=== PATIENT | male | born 1945 | race Caucasian/White ===

== ENCOUNTER 2023-02-17 09:43 | Emergency (ER) | payer OTHER, SELFPAY ==
[2023-02-17] VITALS (60 sets, daily range): BP systolic 121–167; BP diastolic 68–87; PULSE 59–85; RESP 12–22; TEMP 36.7; O2SAT 96–100
--- NOTE | 2023-02-17 10:15 | RT.EKG_ITS ---
APPROVED REPORT Exam: Resting ECG Reason for Exam: shortness of breath Patient Location: E HR:62 bpm ECG Measurements Heart Rate 62 AXIS [place] 138 P 69 QRSd 90 QRS 64 QT 426 T 32 QTc 439 Conclusion Sinus rhythm...normal P axis, V-rate 60- 99 Multiple ventricular premature complexes...V complexes w/ short R-R intervls Probable left atrial enlargement...P >50mS, <-0.10mV V1 Consider anterior infarct...Q >30mS in V2-V5 Physician: no stemi, minimal inferior and anterior elevation however all are less than 1mm and unchan ged compared to prior ekg from 06/28/16
--- NOTE | 2023-02-17 10:56 | ED.GENADUL_ITS ---
Discharge Plan Disposition Patient Disposition: Transfer-Acute Inpatient Care Specific Acute Inpt Facility: [facility] Condition: Stable Discharge Details Clinical Impression: Angina of effort Primary Care Provider: Racquel Kinney ED Provider: Kalyn Ruiz Home Meds and New Rx's Prescriptions: Continued omeprazole 20 MG capsule,delayed release(DR/EC) 20 mg PO DAILY@0600 atorvastatin [Lipitor] 40 MG tablet 40 mg PO QPM metoprolol tartrate 25 MG tablet 1 tab PO DAILY aspirin 325 MG tablet,delayed release (DR/EC) 325 mg PO DAILY Qty: 30 0RF tamsulosin 0.4 MG capsule 0.4 mg PO DAILY Qty: 0 0RF lisinopril 20 mg Tablet 20 mg DAILY Discharge Instructions Instructions: Chest Pain (ED) Discharge Data Discharge Date/Time-TO BE ENTERED AT DEPARTURE: 02/17/23 17:49 Medical Decision Making <HUNTER Harrington - Last Filed: 02/18/23 20:04> This 77-year-old gentleman presents with chest pressure and shortness of breath with exertion. History of CABG in 2014 Denies any chest pressure throughout this encounter, denies any shortness of breath currently Initial troponins x2 negative, EKG without any acute change from patient's prior assessments, please see my attendings documentation Chest x-ray without acute abnormality Case discussed with hospitalist and initially agreeable to admission, however nurse enrique Corley is attempting to transfer the patient to [facility] for cardiac catheterization, please see her documentation for Patient took his 325 of aspirin this morning, did not repeat Low suspicion for pulmonary embolism clinically, no hypoxia or tachypnea Suspect stable angina at time of my assessment <Meka Cote NP - Last Filed: 02/17/23 16:37> This 77-year-old gentleman presents with chest pressure and shortness of breath with exertion. History of CABG in 2014 Denies any chest pressure throughout this encounter, denies any shortness of breath currently Initial troponins x2 negative, EKG without any acute change from patient's prior assessments, please see my attendings documentation Chest x-ray without acute abnormality Case discussed with hospitalist and initially agreeable to admission, however nurse enrique Corley is attempting to transfer the patient to [facility] for cardiac catheterization, please see her documentation for Patient took his 325 of aspirin this morning, did not repeat Low suspicion for pulmonary embolism clinically, no hypoxia or tachypnea Suspect stable angina at time of my assessment I was called to admit Mr. Borja for further cardiology evaluation. In brief he has history of coronary artery disease s/p CABG in 2015 and has been well and symptomatic until 3 days ago when he developed exertional chest pressure and shortness of breath that occurs with activity. His symptoms resolve with rest after about 10 minutes. He denies cough, fever, swelling or other symptoms. He has not had any symptoms at rest, he has not had these symptoms since his cabg. He has been taking full dose asa, atorvastatin 40 mg, metoprolol in addition to lisinopril, omeprazole and tamsulosin. He reports these symptoms are consistent with symptoms he was having in 2015 prior to his cabg. His work up in the ED shows no acute EKG changes and 2 negative troponins. He is hemodynamically stable with no symptoms at rest. physical exam shows white male of stated age, no acute distress. head atraumatic, neck supple with no JVD, cardiovascular RRR, sinus rhythm, faint murmur heard best over left sternal border. abd soft non tender, skin no rashes, ext with no edema. symptoms concerning for accelerating angina so cardi[place] [facility] [place] the transfer center and case reviewed. He has been accepted by DR Zimmer for further cardiology evaluation. He is being transported by EMS by ground crew. transfer discussed with DR Odom. Medical Records Medical records reviewed: Yes I reviewed the patient's medical records. HPI <HUNTER Harrington - Last Filed: 02/18/23 20:04> General Date/Time Provider Initiated Documentation: 02/17/23 10:17 . HPI Narrative: This 77-year-old gentleman with history of CABG, hypertension, and hyperlipidemia has been having increasing shortness of breath and chest pressure over the past several days. He states is atypical for him. He is fairly active. Denies with his CABG he had shortness of breath as well per patient. This is in 2014. He states has not had a stress test since that time per patient. He denies any calf pain or swelling, recent flights, surgeries and long drives. He states is been going on for approximately 3 days. Related Data Home Medications Medication Instructions Recorded Confirmed omeprazole 20 mg capsule,delayed 20 mg PO DAILY@0600 09/18/13 02/17/23 release atorvastatin 40 mg tablet (Lipitor) 40 mg PO QPM 06/28/16 02/17/23 metoprolol tartrate 25 mg tablet 1 tab PO DAILY 06/28/16 06/28/16 aspirin 325 mg tablet,delayed 325 mg PO DAILY ##30 06/29/16 02/17/23 release tamsulosin 0.4 mg capsule 0.4 mg PO DAILY ##0 06/29/16 02/17/23 lisinopril 20 mg tablet 20 mg DAILY 02/17/23 02/17/23 Previous Rx's Medication Instructions Recorded aspirin 325 mg tablet,delayed 325 mg PO DAILY ##30 06/29/16 release tamsulosin 0.4 mg capsule 0.4 mg PO DAILY ##0 06/29/16 Allergies Allergy/AdvReac Type Severity Reaction Status Date / Time codeine Allergy rapid Unverified 09/18/13 12:22 heart rate/sweating General Stated Complaint: SOB TON: 3 PFSH <HUNTER Harrington - Last Filed: 02/18/23 20:04> All Active Problems (Updated 02/17/23 @ 16:23 by Meka Cote NP) Angina of effort (Acute) Social History Smoking/Tobacco Use Status: Former Tobacco Use Smoking risk assessment performed?: Yes Alcohol Intake: never Drug use: Never Do you feel safe at home: Yes Do you feel safe in your relationship?: Yes Exam <HUNTER Harrington Last Filed: 02/18/23 20:04> Narrative Exam Narrative: Calm and cooperative gentleman, no acute distress, pupils equal round reactive to light and accommodation, lungs clear to auscultation bilaterally, cardiac rate and rhythm regular, no chest wall tenderness, no abdominal tenderness, no pallor, fully alert and oriented, distal pulses intact, no peripheral edema or calf swelling or tenderness, neurovascularly intact Course <HUNTER Harrington Last Filed: 02/18/23 20:04> Vital Signs Vital signs: Vital Signs Temperature 36.7 C 02/17/23 10:12 Pulse 71 02/17/23 10:12 Respiratory Rate 18 02/17/23 10:12 Blood Pressure 142/69 H 02/17/23 10:12 Pulse Oximetry 98 02/17/23 10:12 Temperature 36.7 C 02/17/23 10:12 Pulse 71 02/17/23 10:12 Respiratory Rate 18 02/17/23 10:12 Respiratory Effort Normal, Non-Labored 02/17/23 10:17 Blood Pressure 142/69 H 02/17/23 10:12 Blood Pressure Position Supine 02/17/23 10:12 Pulse Oximetry 98 02/17/23 10:12 Oxygen Delivery Method Room Air 02/17/23 10:12 Oxygen Flow Rate 0 02/17/23 10:12 Pain Level 0 02/17/23 10:12
[2023-02-17 11:06] LABS: Abs Immature Grans 0.02 10^3/uL (0.0-0.06); Absolute Basophil Count 0.06 10^3/uL (0.0-0.2); Absolute Eosinophil Count 0.18 10^3/uL (0.0-0.7); Absolute Lymphocyte Count 1.81 10^3/uL (1.2-3.4); Absolute Monocyte Count 0.55 10^3/uL (0.1-0.8); Absolute Neutrophil Count 4.31 10^3/uL (1.2-6.7); Basophils % 0.9; Eosinophils % 2.6; HCT 40.7 % (40.0-50.0); HGB 13.9 g/dL (13.5-17.5); Immature Grans % 0.3; Lymphocytes % 26.1; MCH 32.5 pg (27.0-33.0); MCHC 34.2 % (32.0-36.0); MCV 95 fL (80-95); MPV 9.7 fL (8.0-11.0); Monocytes % 7.9; Neutrophils % 62.2; Platelet Count 218 10^3/uL (130-400); RBC 4.28 10^6/uL (4.36-5.78); RDW 12.1 % (11.8-14.1); RDW-SD 42.4 fL; WBC 6.93 10^3/uL (4.4-10.8)
[2023-02-17 11:26] LABS: ALT 36 U/L (16-63); AST 25 U/L (15-37); Albumin 3.6 g/dL (3.4-5.0); Alkaline Phosphatase 70 U/L (46-116); Anion Gap 5.9 mmol/L (3-11); BUN 17 mg/dL (7-18); Bilirubin, Total 0.6 mg/dL (0.2-1.0); CO2 29.1 mmol/L (21.0-32.0); CREATININE 1.3 mg/dL (0.70-1.30); Calcium 8.7 mg/dL (8.5-10.1); Chloride 103 mmol/L (98-107); Estimated GFR 56.58 (mL/min/1.73m2); Glucose 96 mg/dL (74-106); NT-proBNP 190 pg/mL (<300); Potassium 4.4 mmol/L (3.5-5.1); Sodium 138 mmol/L (136-145); Total Protein 6.9 g/dL (6.4-8.2); Troponin I < 50 ng/L (<or=60)
--- NOTE | 2023-02-17 12:45 | DI.RAD_ITS ---
Exam(s) XR CHEST 2V PA LATERAL EXAM: XR CHEST 2V PA LATERAL CLINICAL HISTORY: shortness of breath. TECHNIQUE: 2D digital imaging was performed. COMPARISON: CR CHEST 2 VIEWS PA,LAT from 09/18/2013 CR CHEST 2 VIEWS PA,LAT from 06/28/2016 FINDINGS: 2 views: There is left anterior chest wall cardiac loop detector now evident. Sternotomy wires again noted as well as evidence of previous CABG. Heart size remains normal and the mediastinum is not widened No new infiltrates nor pleural effusions. No pulmonary edema. There is a small nodular density in the lower right lung field which is unchanged from 2012 and 2015 and is probably a small calcified granuloma or possibly related to the breast nipple shadow. There a re no new ominous lung nodules. IMPRESSION: No acute pulmonary findings. Sternotomy wires. CABG. No cardiomegaly. No pulmonary edema. No pleural effusions. DATA REPOSITORY: RADIATION DOSE DELIVERED:
[2023-02-17 13:17] LABS: Troponin I < 50 ng/L (<or=60)
--- NOTE | 2023-02-17 14:16 | W.PM.HP.N ---
Date of service: 02/17/23 Time of Service: 14:16 History of Present Illness History of Present Illness Chief Complaint: shortness of breath Narrative: 77 year old male with history of CABG in usual state of health who developed exertional shortness and of breath and chest pain 3 days ago. work up in the ED unrevealing. his symptoms concerning for unstable angina. plan to admit to hospitalist for stress testing. PFSH Social History Smoking/Tobacco Use Status: Former Tobacco Use Smoking risk assessment performed?: Yes Alcohol Intake: never Drug use: Never Do you feel safe at home: Yes Do you feel safe in your relationship?: Yes Meds Allergies and Home Medications Allergies Allergy/AdvReac Type Severity Reaction Status Date / Time codeine Allergy rapid Unverified 09/18/13 12:22 heart rate/sweating Home Medications Medication Instructions Recorded Confirmed Type omeprazole 20 mg capsule,delayed 20 mg PO DAILY@0600 09/18/13 02/17/23 History release atorvastatin 40 mg tablet (Lipitor) 40 mg PO QPM 06/28/16 02/17/23 History metoprolol tartrate 25 mg tablet 1 tab PO DAILY 06/28/16 06/28/16 History aspirin 325 mg tablet,delayed 325 mg PO DAILY ##30 06/29/16 02/17/23 Rx release tamsulosin 0.4 mg capsule 0.4 mg PO DAILY ##0 06/29/16 02/17/23 Rx lisinopril 20 mg tablet 20 mg DAILY 02/17/23 02/17/23 History Results Labs 02/17/23 11:00 02/17/23 11:00 Labs: Laboratory Results - last 24 hr 02/17/23 02/17/23 02/17/23 11:00 11:00 11:00 WBC 6.93 RBC 4.28 L Hgb 13.9 Hct 40.7 MCV 95 MCH 32.5 MCHC 34.2 RDW 12.1 Plt Count 218 MPV 9.7 Immature Gran % 0.3 Neutrophils % 62.2 Lymphocytes % 26.1 Monocytes % 7.9 Eosinophils % 2.6 Basophils % 0.9 Nucleated RBC % 0.0 Absolute Neutrophils 4.31 Absolute Lymphocytes 1.81 Absolute Monocytes 0.55 Absolute Eosinophils 0.18 Absolute Basophils 0.06 Sodium 138 Potassium 4.4 Chloride 103 Carbon Dioxide 29.1 Anion Gap 5.9 BUN 17 Creatinine 1.3 Est GFR (CKD-EPI 2020) 56.58 Glucose 96 Calcium 8.7 Total Bilirubin 0.6 AST 25 ALT 36 Alkaline Phosphatase 70 Troponin I < 50 NT-Pro-B Natriuret Pep 190 Cancelled Total Protein 6.9 Albumin 3.6 02/17/23 12:50 WBC RBC Hgb Hct MCV MCH MCHC RDW Plt Count MPV Immature Gran % Neutrophils % Lymphocytes % Monocytes % Eosinophils % Basophils % Nucleated RBC % Absolute Neutrophils Absolute Lymphocytes Absolute Monocytes Absolute Eosinophils Absolute Basophils Sodium Potassium Chloride Carbon Dioxide Anion Gap BUN Creatinine Est GFR (CKD-EPI 2020) Glucose Calcium Total Bilirubin AST ALT Alkaline Phosphatase Troponin I < 50 NT-Pro-B Natriuret Pep Total Protein Albumin Last Vital Signs Temp 36.7 C 02/17/23 10:12 Pulse 66 02/17/23 12:31 Resp 15 02/17/23 12:53 BP 126/78 02/17/23 12:31 Pulse Ox 98 02/17/23 12:53
--- NOTE | 2023-02-17 17:48 | NUR.NOTE ---
Nursing Note: attempted to call and give report to [facility] Nurse, they could not accept the call at this time. Will attempt to call back later.
== END 2023-02-17 17:49 | disposition short-term general hospital (02) ==
PROVIDERS: Emergency Provider Physician Assistant
DX: I20.8 Other forms of angina pectoris (principal); R06.02 Shortness of breath; Z95.1 Presence of aortocoronary bypass graft; Z79.82 Long term (current) use of aspirin; I10 Essential (primary) hypertension; E78.5 Hyperlipidemia, unspecified; Z87.891 Personal history of nicotine dependence
CPT/HCPCS: 36415; 80053; 93005; 99283; 99285; 71046; 83880; 84484; 85025; 93010; 99284

== ENCOUNTER 2023-06-11 07:02 | Day surgery (SDC) | payer OTHER, SELFPAY ==
--- NOTE | 2023-06-10 15:43 | W.PM.DSUDISC ---
Date of service: 06/11/23 Time of Service: 10:05 Discharge Plan Disposition Patient Disposition: Home Condition: Good Discharge Details Reason For Visit: EGD and colonoscopy Attending Provider: Marcos Millard Primary Care Provider: Jhonny Schroeder Home Meds and New Rx's Prescriptions: New sucralfate 1 gram tablet 1 g PO QACHS Qty: 120 0RF Continued aspirin 81 mg tablet,delayed release (DR/EC) 81 mg PO DAILY omeprazole 20 MG capsule,delayed release(DR/EC) 20 mg PO DAILY@0600 atorvastatin [Lipitor] 40 MG tablet 40 mg PO QPM tamsulosin 0.4 MG capsule 0.4 mg PO DAILY Qty: 0 0RF lisinopril 20 mg Tablet 20 mg DAILY Discharge Instructions Instructions: Peptic Ulcer (DC), Diet for Stomach Ulcers and Gastritis (GEN) Additional Instructions: Denys, we were able to complete your endoscopies today without any difficulty. Although they do not see clinical features of Short's esophagus (changes around your gastroesophageal junction) you do have peptic ulcer disease, with 4 gastric ulcers in the bottom portion of your stomach. 1 of these ulcers have some stigmata or signs of recent bleeding. I do think you should go back to taking your omeprazole every day. I am also going to add a Medication called sucralfate, which you will need to take with every meal, and at bedtime. You will need to have another upper endoscopy at 6 weeks to reassess the ulcers. In the meantime, I also perform biopsies of the stomach to see if there are any other sources that could be treated to help reduce the ulceration. With regard to your colonoscopy, I did find 1 single polyp. I removed it completely. I will also send that off to pathology to confirm what type of polyp it is I will be in touch when I have the results of the pathology reports, and we can make a plan together at that point. 1. If tolerated, consume a soft, low fiber diet for 1-2 days. 2[address] Do not drive, drink alcohol, operate machinery, make critical decisions, or do activities that require coordination or balance for 24 hours. 3. Because air was put into your colon during the procedure, expelling air from your rectum (passing gas or farting) is normal. 4. You may not have a bowel movement for 1-3 days because of the colonoscopy prep. This is normal. 5. You may experience a sore throat for 24 to 48 hours. You may use throat lozenges or gargle with warm salt water to relieve the discomfort. 6. Because air was put into your stomach during the procedure, you may experience some belching. 7. Go directly to the emergency room if you notice any of the following: Develop chills (warm to touch), or if you have a thermometer and your temperature is above 101 Difficulty breathing or difficultly swallowing Persistent vomiting Severe abdominal pain, other than gas cramps Severe chest pain Black, tarry stools Any bleeding ? exceeding one tablespoon 8. Call your physician if the site where your intravenous was started becomes red, swollen, painful, and warm to touch. 9. Your physician has reviewed your pre-procedure medications. Please continue to take those medications as previously ordered. You will be given specific information/education regarding any changes to your medications before leaving. Activity:: Activity as Tolerated Diet:: As Tolerated Discharge Orders Discharge Orders: Discharge Order (Routine); Ordered 06/10/23 Ordered By: Marcos Millard DS: Diagnosis Discharge Diagnosis (1) GERD (gastroesophageal reflux disease): Status: Chronic Asessment and Plan: I will follow-up on pathology results
--- NOTE | 2023-06-10 15:45 | ENDO_ITS ---
Date of service: 06/11/23 Time of Service: 09:35 Endoscopy Report DATE OF PROCEDURE: 06/11/23 PRE-OP DIAGNOSIS: GERD and screening colonoscopy POST-OP DIAGNOSIS: other (Peptic ulcer disease; colon polyp) PROCEDURE: EGD and colonoscopy SURGEON: Marcos Millard ANESTHESIA TYPE: General:No Airway ESTIMATED BLOOD LOSS: 10 PATHOLOGY: other (Antral ulcers, random biopsies of gastric antrum, gastric body and GE junction; colon polyp at 110 cm) COMPLICATIONS: None DISPOSITION: same day INDICATIONS: Denys is a 78-year-old male with a longstanding history of gastroesophageal reflux disease who needs screening endoscopy to rule out Short's esophagus, as well as screening colonoscopy as part of routine health maintenance PREP: Miralax/Dulcolax PROCEDURE START TIME: 09:07 PROCEDURE END TIME: 09:33 COLONOSCOPY RETRACTION TIME: 8 FINDINGS: Antral gastritis with peptic ulcer disease, and 4 discrete ulcers; colon polyp at 110 cm PROCEDURE DESCRIPTION: After the initiation of monitored anesthetic care, and with the assistance of a bite block, I advanced a standard gastroscope through the mouth past the hypopharynx and into the esophagus.? Under the direct vision of the scope, I advanced down the esophagus into the stomach.? Once I entered the stomach, I performed a brief inspection, followed by retroflexion towards the gastric cardia.? This appeared normal.? After that, I gently advanced the scope around the incisura angularis and examined the pylorus.? The antrum had some mild erythema, but more importantly, there were 4 discrete gastric ulcers. 3 were in close proximity to 1 another, one was slightly separate. All appeared to be simple, but 1 did have some eschar in the middle, that raise the possibility of stigmata of bleeding. I was able to advance the catheter beyond the antrum through the pylorus and into the duodenum which appeared totally normal. I then brought the camera back into the stomach proper. I performed biopsies of the gastric ulcers with cold forceps. There was minimal bleeding. In order to rule out Helicobacter pylori, I also performed random biopsies of the gastric antrum and gastric body. All biopsies were performed with cold radial gel forceps. Next, I performed retroflexion. The gastric cardia appeared totally normal. I gently desufflated the stomach and brought the camera back up to the GE junction, which was approximately 46 cm from the incisors. There was only minim al irregularity of the Z-line. I did perform some biopsies here, although clinically it does not appear consistent with Short's esophagus. I then reexamined the remainder of the esophagus as the camera was withdrawn. All of this was normal. Next, we moved Denys into the left lateral decubitus position. I performed an external anorectal exam.? Perineum and skin were normal, as was the anal verge.? There was no evidence of external hemorrhoids.? Next, I performed a digital rectal exam.? I did not appreciate any abnormal findings.? Next, I advanced a colonoscope into the rectal vault.? I performed retroflexion.? This appeared normal.? Using insufflation, I then advanced the colonoscope beyond the rectal folds and into the sigmoid colon before advancing towards the cecum.? The quality of the prep was excellent.? The scope was noted to be in the cecum by identification of the ileocecal valve and appendiceal orifice.? I then began withdrawing the colonoscope using repeated irrigation as necessary for full evaluation of the colonic mucosa. Around 110 cm from the anal verge I identified a 0.25 cm polyp. ?It appeared sessile in character. ?I was able to remove this with a cold forcep polypectomy. ?I examined the site, and there was minimal bleeding. ?Once this was completed, I continued to withdraw the scope and examine the remainder of the colonic mucosa.?Once the scope was withdrawn to the level of the rectum, great care was taken to examine portions of the rectal folds.? Finally, the scope was withdrawn and the patient was brought to the same-day surgery recovery unit as the anesthetic wore off. ?The findings and instructions were shared with the patient prior to discharge.
--- NOTE | 2023-06-10 18:03 | ANES.PREOP_ITS ---
General Info Date of Service Date Performed: 06/11/23 Height: 5 ft 11.5 in Weight: 83.915 kg Body Mass Index (BMI): 25.4 Surgical Procedure: Operation Date: 06/11/23 09:20 Proposed Procedure Side Surgeon p Colonoscopy/Gastroscopy Marcos Millard MD Meds Allergies and Home Medications Allergies Allergy/AdvReac Type Severity Reaction Status Date / Time vardenafil Allergy Unknown Verified 06/11/23 07:15 codeine Allergy rapid Unverified 06/11/23 07:15 heart rate/sweating Home Medication Medication Instructions Recorded omeprazole 20 mg capsule,delayed 20 mg PO DAILY@0600 09/18/13 release atorvastatin 40 mg tablet (Lipitor) 40 mg PO QPM 06/28/16 tamsulosin 0.4 mg capsule 0.4 mg PO DAILY ##0 06/29/16 lisinopril 20 mg tablet 20 mg DAILY 02/17/23 aspirin 81 mg tablet,delayed 81 mg PO DAILY 04/28/23 release Current Visit Medications: Current Medications Generic Name Dose Route Start Last Admin Trade Name Freq PRN Reason Stop Dose Admin Hyoscyamine Sulfate 0.125 mg 06/10/23 15:46 Hyoscyamine 0.125 Mg Sl/Oral/Chew SL 07/10/23 15:45 DIRECTED PRN Ringer's Solution 1,000 mls @ 80 mls/hr 06/11/23 06:00 IV 06/11/23 23:59 INF[facility]ION [facility] IV Miscellaneous Supplies 1 each 06/11/23 06:00 Iv Access IV 06/11/23 23:59 DIRECTED SHADIA Ondansetron HCl 4 mg 06/10/23 15:46 Ondansetron 4 Mg/2 Ml Vial IVP 07/10/23 15:45 Q4H PRN PRN Nausea / Vomiting Sodium Chloride 0 ml 06/11/23 06:00 Normal Saline Flush 10 Ml Syr IV 06/11/23 23:59 PRN PRN Sodium Chloride 0 ml 06/11/23 06:00 Normal Saline 10 Ml Vial IJ 06/11/23 23:59 DIRECTED PRN Sterile Water 0 ml 06/11/23 06:00 Water,Injection,Sterile 10 Ml Vial IJ 06/11/23 23:59 DIRECTED PRN PFSH Active Problems Active Problems: Problem Status Onset Code Erectile dysfunction N52.9 GERD (gastroesophageal reflux disease) K21.9 Medical History Medical History Actinic keratoses Altered bowel function Back pain Coronary artery disease Dyspnea on exertion Rectal bleeding TIA (transient ischemic attack) 2019 Tubular adenoma (~03/16/05) Vertebrobasilar insufficiency Surgical History Surgical History History of colonoscopy with polypectomy (~2018) 03/16/2005 History of coronary artery bypass graft 2014 Last saw cards 02/2023 At [facility] History of esophagogastroduodenoscopy (EGD) (~06/25/11) HPylori to repeat in 6 months per referral Tobacco Smoking/Tobacco Use Status: Former Tobacco Use Alcohol Alcohol Intake: never Substance Use Substance use: Never Substance use type: does not use Vital Signs and Lab Results Vital Signs Most Recent Vital Signs in EMR: Temp Pulse Resp BP Pulse Ox 36.1 C L 86 16 124/84 97 06/11/23 07:10 06/11/23 07:10 06/11/23 07:10 06/11/23 07:10 06/11/23 07:10 Lab Results Blood Type / Crossmatch: No Data to Display Complete Blood Count: No Data to Display Complete Metabolic Panel: No Data to Display Liver Function Panel: No Data to Display Coagulation Panel: No Data to Display Cardiac Panel: No Data to Display Arterial Blood Gas: No Data to Display Venous Blood Gas: No Data to Display Pancreas Panel: No Data to Display Thyroid Panel: No Data to Display Infectious Disease: No Data to Display Blood Cultures: No Data to Display Toxicology Panel: No Data to Display Imaging and Studies Imaging and Studies Study information below may be from another EMR and interpreted by another provider. Please see original notes in EMR for more complete details. EKG Summary: 02/28: sinus, PVCs, LAE. Echocardiogram Summary: 02/2023 stress echo: 7.7 METS, baseline hypokinesis of mid anterolateral to inferolateral wall, no evidence of stress induced ischemia. 02/2023: LVEF 52%, No sig valve issues. 06/23: LVEF 60-65%, mild MV prolapse with mild-mod regurg, moderate TR, PAS 25-35 mmhg. Carotid Artery Summary:: 06/23: no sig stenosis. Anesthesia Assessment and Plan Anesthesia History Personal History: No History of Anesthesia Complications Family History: Family History Unknown Exercise Tolerance Exercise Tolerance: Metabolic Equivalents>4 Cardiac & Pulmonary Exam Cardiac Exam: Normal S1/S2 Heart Sounds Pulmonary Exam: Clear Bilateral Breath Sounds Implantable Cardiac Device Does patient have a Pacemaker or an ICD?: No Airway Exam Known Difficult Airway: No Mallampati Class: 3 Mouth Opening: Normal (> 3cm) Thyromental Distance: Greater than 3 cm Neck Range of Motion: Limited ROM Neck Circumference: Normal Teeth Condition: Normal Dentition ASA Classification ASA Score: ASA 3 Emergency Case?: No NPO Status NPO Status: NPO Clears >2 hours, Solids >8 hours Anesthesia Plan Resuscitation Status: Full Code Anesthesia Technique: General Anesthesia Airway Planned: Natural Airway Monitors Used: Standard Monitors Preoperative Comments:: 78 yo male for egd/colo. Sig PMHx: GERD, CAD (3 v CABG 2015 in [place], stable angina), BOYD, TIA (2019), former smoker,
[2023-06-11 07:10] VITALS: BP 124/84; PULSE 86; RESP 16; TEMP 36.1; O2SAT 97
[2023-06-11] MEDS: Lactated Ringers 1,000 ML 80 ML IV (07:40)
[2023-06-11 07:57] VITALS: BMI 25.4
--- NOTE | 2023-06-11 09:10 | BOWEL_PTH ---
PATIENT: Denys Borja LOC: [facility] U#:[id number] AGE/SX: 78/M ROOM: RE06/11/[address]: Marcos Millard MD : 1945 BED: DIS: 06/11/2023 SPEC #: [id number] RECD: 06/11/23 12:42 STATUS: FORTUNATO RE #: [id number] DAVE: 06/11/23 09:[address]: Marcos Millard DEPT: Surgical Specimen RECD BY: Rowan Awad ENTERED: 06/11/23 12:47 SP TYPE: Bowel OTHR DR: Jhonny Schroeder Tissues: 1 - STOMACH BIOPSY 2 - STOMACH BIOPSY 3 - STOMACH BIOPSY 4 - ESOPHAGUS BIOPSY 5 - BIOPSY BOWEL Procedures: GROSS AND MICRO LEVEL 4 Comments: [id number]
[2023-06-11 09:45] VITALS: BP 109/85; PULSE 75; RESP 17; TEMP 36.2; O2SAT 98
--- NOTE | 2023-06-11 10:00 | W.ANESPOSTOP ---
Postoperative Evaluation Date, Time and Location Date Performed: 06/11/23 Time Performed: 10:00 Patient Location: Day Surgery Unit Vital Signs Most Recent Imported Vital Signs: Most Recent Vital Signs Temp Pulse Resp BP Pulse Ox 36.2 C L 75 17 109/85 98 06/11/23 09:45 06/11/23 09:45 06/11/23 09:45 06/11/23 09:45 06/11/23 09:45 Pain Score Most Recent Pain Score: Most Recent Pain Score Pain Level 0 06/11/23 09:45 Assessment Mental Status: Awake (Alert & Oriented to Patient Baseline) Airway and Respiratory Function: Patent airway with normal (patient baseline) respiratory exam Cardiovascular Function: Hemodynamically Stable Hydration Status: Adequately Hydrated Nausea & Vomiting: No Nausea or Vomiting Pain: Pt. Denies Any Pain Peripheral Nerve Block: Patient did not receive a nerve block
[2023-06-11 10:14] VITALS: BP 128/81; PULSE 66; RESP 17; TEMP 36.3; O2SAT 99
--- NOTE | 2023-06-11 10:17 | W.PM.DSUDISC ---
Discharge Plan Disposition Patient Disposition: Home Condition: Good Discharge Details Reason For Visit: EGD and colonoscopy Attending Provider: Marcos Millard Primary Care Provider: Jhonny Schroeder Home Meds and New Rx's Prescriptions: New sucralfate 1 gram tablet 1 g PO QACHS Qty: 120 1RF Continued aspirin 81 mg tablet,delayed release (DR/EC) 81 mg PO DAILY omeprazole 20 MG capsule,delayed release(DR/EC) 20 mg PO DAILY@0600 atorvastatin [Lipitor] 40 MG tablet 40 mg PO QPM tamsulosin 0.4 MG capsule 0.4 mg PO DAILY Qty: 0 0RF lisinopril 20 mg Tablet 20 mg DAILY Discharge Instructions Instructions: Peptic Ulcer (DC), Diet for Stomach Ulcers and Gastritis (GEN) Additional Instructions: Denys we were able to complete your endoscopies today without any difficulty. Although they do not see clinical features of Short's esophagus (changes around your gastroesophageal junction) you do have peptic ulcer disease, with 4 gastric ulcers in the bottom portion of your stomach. 1 of these ulcers have some stigmata or signs of recent bleeding. I do think you should go back to taking your omeprazole every day. I am also going to add a Medication called sucralfate, which you will need to take with every meal, and at bedtime. You will need to have another upper endoscopy at 6 weeks to reassess the ulcers. In the meantime, I also perform biopsies of the stomach to see if there are any other sources that could be treated to help reduce the ulceration. With regard to your colonoscopy, I did find 1 single polyp. I removed it completely. I will also send that off to pathology to confirm what type of polyp it is I will be in touch when I have the results of the pathology reports, and we can make a plan together at that point. 1. If tolerated, consume a soft, low fiber diet for 1-2 days. 2[address] Do not drive, drink alcohol, operate machinery, make critical decisions, or do activities that require coordination or balance for 24 hours. 3. Because air was put into your colon during the procedure, expelling air from your rectum (passing gas or farting) is normal. 4. You may not have a bowel movement for 1-3 days because of the colonoscopy prep. This is normal. 5. You may experience a sore throat for 24 to 48 hours. You may use throat lozenges or gargle with warm salt water to relieve the discomfort. 6. Because air was put into your stomach during the procedure, you may experience some belching. 7. Go directly to the emergency room if you notice any of the following: Develop chills (warm to touch), or if you have a thermometer and your temperature is above 101 Difficulty breathing or difficultly swallowing Persistent vomiting Severe abdominal pain, other than gas cramps Severe chest pain Black, tarry stools Any bleeding ? exceeding one tablespoon 8. Call your physician if the site where your intravenous was started becomes red, swollen, painful, and warm to touch. 9. Your physician has reviewed your pre-procedure medications. Please continue to take those medications as previously ordered. You will be given specific information/education regarding any changes to your medications before leaving. Stand Alone Forms: Anesthesia Discharge InstGael Gtz (DSU) Activity:: Activity as Tolerated Diet:: As Tolerated Discharge Orders Discharge Orders: Discharge Order (Routine); Ordered 06/10/23 Ordered By: Marcos Millard DS: Diagnosis Discharge Diagnosis (1) GERD (gastroesophageal reflux disease): Status: Chronic
== END 2023-06-11 10:40 | disposition home or self-care (01) ==
PROVIDERS: PCP Nurse Practitioner Family; Visit Provider Surgery
PROC: (CPT 45380; principal; 2023-06-11 09:15)
DX: K21.9 Gastro-esophageal reflux disease without esophagitis (principal); Z12.11 Encounter for screening for malignant neoplasm of colon; D12.3 Benign neoplasm of transverse colon; K25.9 Gastric ulcer, unspecified as acute or chronic, without hemorrhage or perforation
CPT/HCPCS: 45380; 43239; 88305

== ENCOUNTER 2023-07-23 06:44 | Day surgery (SDC) | payer OTHER, SELFPAY ==
--- NOTE | 2023-07-22 22:12 | ENDO_ITS ---
Endoscopy Report PRE-OP DIAGNOSIS: Peptic ulcer disease/stomach ulcers SURGEON: Shanta Davis ANESTHESIA TYPE: General:No Airway PATHOLOGY: other COMPLICATIONS: None DISPOSITION: same day PROCEDURE DESCRIPTION: After informed consent was obtained the patient was take to the procedure room and placed in a supine position. Monitors were applied and a time out was done. The patients name, date of , procedure type, allergies to medications and metal in their body was reviewed. A bite block was placed and the patient was sedated. Once sedated and comfortable the gastroscope was advanced through the oropharynx which was grossly normal into the esophagus. The proximal and mid- esophagus were []. In the distal esophagus there was [] noted. The scope was advanced into the stomach and through the pylorus into the 3rd portion of the duodenum. The duodenum was noted to be []. Biopsies were done []. The scope was retracted back into the stomach and biopsies were done to rule out H. pylori. There were [] ulcers. The scope was retroflexed. The cardia and fundus were noted to be normal. There [] a hiatal hernia noted. The scope was retracted back into the esophagus and biopsies were done of the GE junction to rule out Short's. The Z line was regular. The GE junction was at [] cm. The scope was removed and the patient was woken up and taken back to [facility] in stable condition.
--- NOTE | 2023-07-22 22:13 | PDOC.DSDIS_ITS ---
Discharge Plan Disposition Patient Disposition: Home Condition: Good Discharge Details Attending Provider: Marcos Millard Primary Care Provider: Jhonny Schroeder Home Meds and New Rx's Prescriptions: No Action aspirin 81 mg tablet,delayed release (DR/EC) 81 mg PO DAILY omeprazole 20 MG capsule,delayed release(DR/EC) 20 mg PO DAILY@0600 atorvastatin [Lipitor] 40 MG tablet 40 mg PO QPM tamsulosin 0.4 MG capsule 0.4 mg PO DAILY Qty: 0 0RF lisinopril 20 mg Tablet 20 mg DAILY sucralfate 1 gram tablet 1 g PO QACHS Qty: 120 1RF Discharge Instructions Additional Instructions: Post EGD Instruction ?You had anesthesia for your EGD/stomach scope today.? For your safety, please do the following for the next twenty-four (24) hours: Do Not operate a motor vehicle (car, truck, motorcycle, etc.) Do Not drink alcoholic beverages or use any recreational drugs for the first 24 hours or while taking pain medications. The medications in your body may have a reaction that can be dangerous. Do Not make any important decisions or sign any important papers You have just had a gastroscopy (EGD) or upper GI tract examination. It is important for your smooth recovery that you carefully follow the recommendations below. Do not hesitate to call if any questions should arise about your anesthesia, condition, or care. -Symptoms you may experience during the next 24 hours: ?1. Mild abdominal pain or excessive gas or a bloated feeling which improves with rest, liquids, eating? slightly, and walking as tolerated. 2. Drowsiness and/or forgetfulness because of the medications you were given. ?3. Throat numbness for about 1 hour. 4. A sore throat which you can treat with throat lozenges or by gargling with s alt water 4-5 times a day. 5. Redness at the site of your IV which you can treat with warm compresses. SPECIAL INSTRUCTIONS: 1. You may resume your previous diet in one hour. We recommend a light meal to start, then progress as tolerated. 2. Restart regular medications in one hour. 3. No aspirin or non-steroidal containing medication for three days. 4. No lifting over 20 pounds or strenuous activity for the first 24 hours after your procedure. After 24 hours there are no restrictions on your activity, but you may feel fatigued for a few days. Findings: Treatment: -Medications: -Continue to follow lifestyle modifications: No alcohol, tobacco products, Aspirin or NSAID's (ibuprofen, Motrin, Naprosyn, aleve, etc).? Try to limit/avoid:? soda pop/any carbonated beverages, caffeine (including tea & chocolate), and acidic foods, (tomatoes, citrus, onions, peppermints) spicy or fried/fatty foods. Do not lie down for 30 minutes after eating, and do not eat 2 hours prior to bedtime. Avoid wearing tight fitting clothing/ belts. Follow up: -My office will send a letter with the results of your biopsy?s in 2-3wks time. Call the office at [phone] (Office) or [phone] (Hospital), or go to the ER right away if you notice any of the followin. Vomiting blood and /or ?coffee ground? material. ?2. Worsening of abdominal pain or cramping. ?3. Trouble with breathing, cough, and/or fever (temperature above 101.5 F). 4. Increasing pain with swallowing. ?5. Chest pain. 6. Any new symptoms. 7. Worsening of the redness at the IV site Just Activity:: See above Diet:: See above DS: Diagnosis Discharge Diagnosis (1) Peptic anastomotic ulcer: Status: Acute (2) Peptic ulcer disease: Status: Chronic Asessment and Plan: Post Op Endo Note Patient is seen and examined after they are endoscopy.? Patient has minimal sore throat.? They have been able to tolerate liquids.? They do not have any nausea vomiting.? They are not having any chest pain or shortness of breath.? They have been able to pass gas and are not having any abdominal pain or distention.? They have not vomited any blood.? The vital signs have been stable-see nursing notes. We discussed findings on their endoscopy. We reviewed the importance of lifestyle modification-see discharge instructions We reviewed any new medications that the patient may be prescribed-see discharge instructions Patient will either be sent a letter with the biopsy results or follow-up in the office-see discharge instructions. Patient was given explicit instructions to follow-up regarding post endoscopy- refer to discharge Patient verbalized understanding and discharged in stable and satisfactory condition.? See nursing notes. (3) GERD (gastroesophageal reflux disease): Status: Chronic (4) TIA (transient ischemic attack): (5) Tubular adenoma: (6) Vertebrobasilar insufficiency: (7) Coronary artery disease: (8) Rectal bleeding:
[2023-07-23 07:00] VITALS: BP 111/72; PULSE 75; RESP 18; TEMP 36.4; O2SAT 96
--- NOTE | 2023-07-23 07:06 | W.PM.DSUDISC ---
Date of service: 07/23/23 Time of Service: 09:03 Discharge Plan Disposition Patient Disposition: Home Condition: Good Discharge Details Reason For Visit: EGD Attending Provider: Marcos Millard Primary Care Provider: Jhonny Schroeder Home Meds and New Rx's Prescriptions: Continued aspirin 81 mg tablet,delayed release (DR/EC) 81 mg PO DAILY omeprazole 20 MG capsule,delayed release(DR/EC) 20 mg PO DAILY@0600 atorvastatin [Lipitor] 40 MG tablet 40 mg PO QPM tamsulosin 0.4 MG capsule 0.4 mg PO DAILY Qty: 0 0RF lisinopril 20 mg Tablet 20 mg DAILY sucralfate 1 gram tablet 1 g PO QACHS Qty: 120 1RF Discharge Instructions Additional Instructions: Dinesh, your EGD shows that the stomach ulcers that I saw on your previous test appeared to be well on their way to healing. Based on your longstanding history of gastroesophageal reflux, as well as the ulcer seen on the previous endoscopy, I do think that you should stay on your omeprazole for the rest of your life. I do not see any indications to repeat the EGD at this point. If you have any questions at all please dont hesitate to call. 1. If tolerated, consume a soft, low fiber diet for 1-2 days. 2[address] Do not drive, drink alcohol, operate machinery, make critical decisions, or do activities that require coordination or balance for 24 hours. 3. You may experience a sore throat for 24 to 48 hours. You may use throat lozenges or gargle with warm salt water to relieve the discomfort. 4. Because air was put into your stomach during the procedure, you may experience some belching. 5. Go directly to the emergency room if you notice any of the following: Develop chills (warm to touch), or if you have a thermometer and your temperature is above 101 Difficulty breathing or difficultly swallowing Persistent vomiting Severe abdominal pain, other than gas cramps Severe chest pain Black, tarry stools Any bleeding ? exceeding one tablespoon 6. Call your physician if the site where your intravenous was started becomes red, swollen, painful, and warm to touch. 7. Your physician has reviewed your pre-procedure medications. Please continue to take those medications as previously ordered. You will be given specific information/education regarding any changes to your medications before leaving. Activity:: Activity as Tolerated Diet:: As Tolerated Discharge Orders Discharge Orders: Discharge Order (Routine); Ordered 07/23/23 Ordered By: Marcos Millard DS: Diagnosis Discharge Diagnosis (1) Peptic ulcer disease: Status: Chronic (2) GERD (gastroesophageal reflux disease): Status: Chronic (3) TIA (transient ischemic attack): (4) Tubular adenoma: (5) Vertebrobasilar insufficiency:
--- NOTE | 2023-07-23 07:07 | W.PM.ENDDOP ---
Date of service: 07/23/23 Time of Service: 09:05 Endoscopy Report DATE OF PROCEDURE: 07/23/23 PRE-OP DIAGNOSIS: Peptic ulcer disease POST-OP DIAGNOSIS: same PROCEDURE: EGD with biopsies SURGEON: Marcos Millard ANESTHESIA TYPE: General:No Airway ESTIMATED BLOOD LOSS: 5 PATHOLOGY: other (Antral biopsies) COMPLICATIONS: None DISPOSITION: same day INDICATIONS: Dinesh is a 78-year-old male with longstanding gastroesophageal reflux disease. He underwent a EGD about a month and a half ago. He was diagnosed with active peptic ulcer disease at that point. Proton pump inhibition therapy was resumed. He is following up for repeat EGD FINDINGS: 1 2 healing gastric ulcers PROCEDURE DESCRIPTION: After the initiation of monitored anesthetic care, and with the assistance of a bite block, I advanced a standard gastroscope through the mouth past the hypopharynx and into the esophagus.? Under the direct vision of the scope, I advanced down the esophagus into the stomach.? Once I entered the stomach, I performed a brief inspection, followed by retroflexion towards the gastric cardia.? This appeared normal.? After that, I gently advanced the scope around the incisura angularis and examined the pylorus.? I was able to see the area that was previously observed with gastric ulcers. The large dominant ulcer with previous stigmata of recent bleeding appears totally healed. There were 3 other lesions, immediately adjacent to the pylorus. 1 of these is completely resolved, and there are 2 small remaining raised areas. They are not heaped up. They are almost flat. There is no evidence of any recent bleeding here, and I would say that they generally appeared much better compared to his last time. I did perform biopsies of these. Used cold forceps and there was minimal bleeding. Quick survey of the remainder of the stomach appeared totally normal. I then desufflated the stomach and brought the camera back up to the GE junction. I saw no evidence of any active pathology here. I brought the camera out along the length of the esophagus, that was also normal-appearing.
[2023-07-23] MEDS: Lactated Ringers 1,000 ML 80 ML IV (07:20)
--- NOTE | 2023-07-23 08:49 | ANES.PREOP_ITS ---
General Info Date of Service Date Performed: 07/23/23 Height: 5 ft 9.5 in Weight: 85.275 kg Body Mass Index (BMI): 27.3 Surgical Procedure: Operation Date: 07/23/23 08:20 Proposed Procedure Side Surgeon p Gastroscopy Marcos Millard MD Actual Procedure Side Surgeon p Gastroscopy Not Applicable Marcos Millard MD Pre-Op Diagnosis Post-Op Diagnosis EGD Meds Allergies and Home Medications Allergies Allergy/AdvReac Type Severity Reaction Status Date / Time vardenafil Allergy Unknown unknown Verified 07/23/23 07:11 codeine Allergy rapid Unverified 07/23/23 07:03 heart rate/sweating Home Medication Medication Instructions Recorded omeprazole 20 mg capsule,delayed 20 mg PO DAILY@0600 09/18/13 release atorvastatin 40 mg tablet (Lipitor) 40 mg PO QPM 06/28/16 tamsulosin 0.4 mg capsule 0.4 mg PO DAILY ##0 06/29/16 lisinopril 20 mg tablet 20 mg DAILY 02/17/23 aspirin 81 mg tablet,delayed 81 mg PO DAILY 04/28/23 release sucralfate 1 gram tablet 1 g PO QACHS peptic ulcer disease 06/11/23 #120 tabs Current Visit Medications: Current Medications Generic Name Dose Route Start Last Admin Trade Name Freq PRN Reason Stop Dose Admin Hyoscyamine Sulfate 0.125 mg 07/23/23 07:08 Hyoscyamine 0.125 Mg Sl/Oral/Chew SL 08/22/23 07:07 DIRECTED PRN Ringer's Solution 1,000 mls @ 80 mls/hr 07/23/23 06:00 07/23/23 07:20 IV 07/23/23 23:59 80 mls/hr INFUSION SHADIA Administration IV Miscellaneous Supplies 1 each 07/23/23 06:00 Iv Access IV 07/23/23 23:59 DIRECTED SHADIA Ondansetron HCl 4 mg 07/23/23 07:08 Ondansetron 4 Mg/2 Ml Vial IVP 08/22/23 07:07 Q4H PRN PRN Nausea / Vomiting Sodium Chloride 0 ml 07/23/23 06:00 Normal Saline Flush 10 Ml Syr IV 07/23/23 23:59 PRN PRN Sodium Chloride 0 ml 07/23/23 06:00 Normal Saline 10 Ml Vial IJ 07/23/23 23:59 DIRECTED PRN Sterile Water 0 ml 07/23/23 06:00 Water,Injection,Sterile 10 Ml Vial IJ 07/23/23 23:59 DIRECTED PRN PFSH Active Problems Active Problems: Problem Status Onset Code Peptic anastomotic ulcer K91.89, K27.9 Peptic ulcer disease K27.9 Erectile dysfunction N52.9 GERD (gastroesophageal reflux disease) K21.9 Medical History Medical History Actinic keratoses Altered bowel function Back pain Coronary artery disease Dyspnea on exertion Rectal bleeding TIA (transient ischemic attack) 2019 Tubular adenoma (~03/16/05) Vertebrobasilar insufficiency Surgical History Surgical History History of colonoscopy with polypectomy (~2018) 03/16/2005 History of coronary artery bypass graft 2014 Last saw cards 02/2023 [facility] History of esophagogastroduodenoscopy (EGD) (~06/25/11) HPylori to repeat in 6 months per referral Tobacco Smoking/Tobacco Use Status: Former Tobacco Use Alcohol Alcohol Intake: never Substance Use Substance use: Never Substance use type: does not use Vital Signs and Lab Results Vital Signs Most Recent Vital Signs in EMR: Most Recent Vital Signs Temp Pulse Resp BP Pulse Ox 36.4 C L 75 18 111/72 96 07/23/23 07:00 07/23/23 07:00 07/23/23 07:00 07/23/23 07:00 07/23/23 07:00 Lab Results Blood Type / Crossmatch: No Data to Display Complete Blood Count: No Data to Display Complete Metabolic Panel: No Data to Display Liver Function Panel: No Data to Display Coagulation Panel: No Data to Display Cardiac Panel: No Data to Display Arterial Blood Gas: No Data to Display Venous Blood Gas: No Data to Display Pancreas Panel: No Data to Display Thyroid Panel: No Data to Display Infectious Disease: No Data to Display Blood Cultures: No Data to Display Toxicology Panel: No Data to Display Imaging and Studies Imaging and Studies Study information below may be from another EMR and interpreted by another provider. Please see original notes in EMR for more complete details. EKG Summary: 02/28: sinus, PVCs, LAE. Echocardiogram Summary: 02/2023 stress echo: 7.7 METS, baseline hypokinesis of mid anterolateral to inferolateral wall, no evidence of stress induced ischemia. 02/2023: LVEF 52%, No sig valve issues. 06/23: LVEF 60-65%, mild MV prolapse with mild-mod regurg, moderate TR, PAS 25-35 mmhg. Carotid Artery Summary:: 06/23: no sig stenosis. Anesthesia Assessment and Plan Anesthesia History Personal History: No History of Anesthesia Complications Family History: Family History Unknown Exercise Tolerance Exercise Tolerance: Metabolic Equivalents>4 Pertinent Negatives Pertinent Negatives: No Symptoms of GERD Cardiac & Pulmonary Exam Cardiac Exam: Normal S1/S2 Heart Sounds Pulmonary Exam: Clear Bilateral Breath Sounds Implantable Cardiac Device Does patient have a Pacemaker or an ICD?: No Airway Exam Known Difficult Airway: No Mallampati Class: 3 Mouth Opening: Normal (> 3cm) Thyromental Distance: Greater than 3 cm Neck Range of Motion: Limited ROM Neck Circumference: Normal Teeth Condition: Normal Dentition ASA Classification ASA Score: ASA 3 Emergency Case?: No NPO Status NPO Status: NPO Clears >2 hours, Solids >8 hours Anesthesia Plan Resuscitation Status: Full Code Anesthesia Technique: General Anesthesia Airway Planned: Natural Airway Monitors Used: Standard Monitors Preoperative Comments:: 78 yo male for egd/colo. Sig PMHx: GERD, CAD (3 v CABG 2015 in [place], stable angina), BOYD, TIA (2019), former smoker,
[2023-07-23 08:50] VITALS: BMI 27.3
--- NOTE | 2023-07-23 08:51 | STOM_PTH ---
PATIENT: Denys Borja LOC: [facility] U#:[id number] AGE/SX: 78/M ROOM: RE07/23/[address]: Marcos Millard MD : 1945 BED: DIS: 07/23/2023 SPEC #: [id number] RECD: 07/23/23 12:42 STATUS: FORTUNATO REQ #: [id number] DAVE: 07/23/23 08:[address]: Marcos Millard DEPT: Surgical Specimen RECD BY: Kalyn Duggan ENTERED: 07/23/23 12:43 SP TYPE: STOMACH OTHR DR: Jhonny Schroeder Tissues: 1 - STOMACH BIOPSY Procedures: GROSS AND MICRO LEVEL 4 Comments: [id number]
[2023-07-23 09:05] VITALS: BP 110/86; PULSE 82; RESP 16; TEMP 36; O2SAT 95
[2023-07-23 09:30] VITALS: BP 110/78; PULSE 64; RESP 16; TEMP 36.4; O2SAT 99
--- NOTE | 2023-07-23 09:46 | W.ANESPOSTOP ---
Postoperative Evaluation Date, Time and Location Date Performed: 07/23/23 Time Performed: 09:05 Patient Location: Day Surgery Unit Vital Signs Most Recent Imported Vital Signs: Most Recent Vital Signs Temp Pulse Resp BP Pulse Ox 36.4 C L 64 16 110/78 99 07/23/23 09:30 07/23/23 09:30 07/23/23 09:30 07/23/23 09:30 07/23/23 09:30 Pain Score Most Recent Pain Score: Most Recent Pain Score Pain Level 0 07/23/23 09:30 Assessment Mental Status: Awake (Alert & Oriented to Patient Baseline) Airway and Respiratory Function: Patent airway with normal (patient baseline) respiratory exam Cardiovascular Function: Hemodynamically Stable Hydration Status: Adequately Hydrated Nausea & Vomiting: No Nausea or Vomiting Pain: Pt. Denies Any Pain Peripheral Nerve Block: Patient did not receive a nerve block Postoperative Comments:: Some respiratory irritability, patient reports preop cough actually new onset. Patient comfortable and appropriate at this time. Cough is settling.
== END 2023-07-23 08:45 | disposition home or self-care (01) ==
PROVIDERS: PCP Nurse Practitioner Family; Visit Provider Surgery
PROC: 0DJ68ZZ Inspection of Stomach, Via Natural or Artificial Opening Endoscopic (ICD-10-PCS; CPT 43235; principal; 2023-07-23 08:15)
DX: Z09 Encounter for follow-up examination after completed treatment for conditions other than malignant neoplasm (principal); K21.9 Gastro-esophageal reflux disease without esophagitis; K25.9 Gastric ulcer, unspecified as acute or chronic, without hemorrhage or perforation
CPT/HCPCS: 43239; 88305; J2001

== ENCOUNTER 2024-11-19 12:08 | Emergency (ER) | payer OTHER, SELFPAY ==
[2024-11-19] VITALS (21 sets, daily range): BP systolic 150–184; BP diastolic 72–84; PULSE 59–75; RESP 13–23; TEMP 36.6; O2SAT 95–99
--- NOTE | 2024-11-19 12:00 | RT.EKG_ITS ---
APPROVED REPORT Exam: Resting ECG Reason for Exam: Palpatations Patient Location: E HR:65 bpm ECG Measurements Heart Rate 65 AXIS HI 148 P 88 QRSd 93 QRS 67 QT 444 T 57 QTc 461 Conclusion Sinus rhythm...normal P axis, V-rate 60- 99 Probable left atrial enlargement...P >50mS, <-0.10mV V1
--- NOTE | 2024-11-19 12:15 | DI.RAD_ITS ---
Exam(s) XR CHEST 2V PA LATERAL EXAM: XR CHEST 2V PA LATERAL CLINICAL HISTORY: chest pain TECHNIQUE: 2D digital imaging was performed of the chest. Two images were obtained. PA and lateral views were obtained. COMPARISON: CR CHEST 2 VIEWS PA,LAT from 09/18/2013 CR XR CHEST 2V PA LATERAL from 02/17/2023 FINDINGS: There is again seen a cardiac loop recorder. MEDIASTINUM: Normal. HEART: Normal. The patient has had a prior CABG. PULMONARY VASCULATURE: Normal. LUNGS: Clear. PLEURAL SPACE: No pleural effusion or pneumothorax. BONE:Within normal limits for the patient's age. OTHER FINDINGS:Nipple shadows are present. IMPRESSION: No acute pulmonary findings. DATA REPOSITORY: RADIATION DOSE DELIVERED:
--- NOTE | 2024-11-19 12:29 | ED.GENADUL_ITS ---
Discharge Plan Disposition Patient Disposition: Home Condition: Stable Discharge Details Clinical Impression: Sinusitis, Chest pain Primary Care Provider: Jhonny Schroeder ED Provider: Eduardo Jeff Home Meds and New Rx's Prescriptions: New amoxicillin-pot clavulanate 875-125 mg tablet 1 tab PO BID Qty: 19 0RF Continued aspirin 81 mg tablet,delayed release (DR/EC) 81 mg PO DAILY omeprazole 20 MG capsule,delayed release(DR/EC) 20 mg PO DAILY@0600 atorvastatin [Lipitor] 40 MG tablet 40 mg PO QPM tamsulosin 0.4 MG capsule 0.4 mg PO DAILY Qty: 0 0RF hydrochlorothiazide 12.5 mg capsule 12.5 mg PO DAILY Discharge Instructions Additional Instructions: Your blood work and x-ray did not show any concerning findings Given your sinus symptoms for a week you are being placed on antibiotics for possible sinus infection Follow-up with your primary care provider especially if symptoms continue within a week If you feel more ill, have severe worsening pain or difficulty breathing return to the emergency department for reevaluation HPI General Mode of arrival: ambulatory . Date/Time Provider Initiated Documentation: 11/19/24 12:12 . Limitations to Documentation: no limitations . Information obtained by: patient . History of Present Illness 79 year old M presents to the emergency department with the chief complaint of chest pain, described as moderate, Quality is described as other (pressure), Patient started experiencing this hour(s) (5) and it has been constant. No relieving factors improve symptom(s), No exacerbating factors reported . Patient notes chest pain and other (nasal congestion and sinus pressure); denies cough and fever/chills. Patient did receive the following treatments prior to arrival, none Related Data Home Medications ?Medication ?Instructions ?Recorded ?Confirmed omeprazole 20 mg capsule,delayed 20 mg PO DAILY@0600 09/18/13 11/19/24 release atorvastatin 40 mg tablet (Lipitor) 40 mg PO QPM 06/28/16 11/19/24 tamsulosin 0.4 mg capsule 0.4 mg PO DAILY ##0 06/29/16 11/19/24 aspirin 81 mg tablet,delayed 81 mg PO DAILY 04/28/23 11/19/24 release amoxicillin 875 mg-potassium 1 tab PO BID #19 tabs 11/19/24 clavulanate 125 mg tablet hydrochlorothiazide 12.5 mg capsule 12.5 mg PO DAILY 11/19/24 11/19/24 Previous Rx's ?Medication ?Instructions ?Recorded tamsulosin 0.4 mg capsule 0.4 mg PO DAILY ##0 06/29/16 amoxicillin 875 mg-potassium 1 tab PO BID #19 tabs 11/19/24 clavulanate 125 mg tablet Allergies Allergy/AdvReac Type Severity Reaction Status Date / Time vardenafil Allergy Unknown unknown Verified 11/19/24 12:18 codeine Allergy rapid Unverified 11/19/24 12:18 heart rate/sweating General Stated Complaint: Chest Pain TON: 2 Review of Systems All systems reviewed & are unremarkable except as noted in HPI and below Constitutional Constitutional: Denies chills, Denies fever(s) and Denies weakness ENT Ears, Nose, Mouth, and Throat: Reports nasal congestion Cardiovascular Cardiovascular: Reports chest pain and Denies dyspnea Respiratory Respiratory: Denies cough and Denies dyspnea Gastrointestinal Gastrointestinal: Denies abdominal pain, Denies nausea and Denies vomiting Musculoskeletal Musculoskeletal: Denies joint swelling Neurologic Neurologic: Denies weakness Psychiatric Psychiatric: Denies depression Exam Const General: no acute distress Orientation: alert [facility] Head: normal to inspection Ears: external ears normal General nose exam: external nose normal Mouth: moist mucous membranes Eyes General: appearance normal, both eyes and all related structures Neck Neck: normal visual inspection Resp Effort & Inspection: normal respiratory effort and able to speak in complete sentences Auscultation: clear to auscultation bilaterally Cardio Jugular venous pressure: no JVD Rate: regular rate Skin General skin exam: no rashes or lesions noted Neuro General: patient alert and patient oriented x3 Extrem General: normal to inspection Psych Mental Status: mental status grossly normal Course Vital Signs Vital signs: Vital Signs Temperature 36.6 C 11/19/24 12:14 Pulse 66 11/19/24 12:14 Respiratory Rate 16 11/19/24 12:14 Blood Pressure 184/72 H 11/19/24 12:14 Pulse Oximetry 98 11/19/24 12:14 Temperature 36.6 C 11/19/24 12:14 Pulse 66 11/19/24 12:14 Respiratory Rate 16 11/19/24 12:14 Blood Pressure 184/72 H 11/19/24 12:14 Pulse Oximetry 98 11/19/24 12:14 Pain Level 0 11/19/24 12:14 Medical Decision Making 79-year-old male with a history of coronary artery disease status post coronary bypass in 2015 comes in with 5 to 6 days of sinus pressure nasal congestion and then this morning it. States he had some anterior chest pressure so came here for evaluation. He denies any vomiting, diaphoresis, radiation of the pain. He is well-appearing on exam. Speaking in full sentences in no distress. He has clear lung sounds, no JVD, no abdominal tenderness. Localizes sinus pain to the maxillary sinuses and has tenderness to palpation of this area, no facial swelling or periorbital swelling. Symptoms seem consistent with sinusitis but given his history and reports of chest pain we will check a CBC, CMP and troponins. He has no tearing back pain and equal peripheral pulses so doubt dissection. No tachycardia or hypoxia no evidence of DVT on exam so doubt PE Labs including delta troponin negative and x-ray unremarkable. Patient is stable and no longer in any pain. He says he said the sinusitis symptoms for about a week so we will initiate antibiotics with Augmentin for possible sinus infection. Given reassuring workup I feel he stable for discharge and can follow-up with his PCP, return precautions given Differential Diagnosis Differential Diagnosis: ACS, NSTEMI, COVID, sinusitis Lab Data Lab results reviewed: Yes I reviewed the patient's lab results. ECG Data Attestation: I personally reviewed and interpreted this ECG (s) as follows: Prior ECG tracings: available for review Interpretation: Sinus, rate of 65, AR 148, no STEMI Quality:SDOH Health Related Social Needs: No Data to Display PFSH All Active Problems (Updated 11/19/24 @ 14:23 by Eduardo Jeff MD) Chest pain (Acute) Sinusitis (Acute) Tubular adenoma (Acute ~06/11/23) 03/16/2005 Peptic anastomotic ulcer (Acute) Peptic ulcer disease (Chronic) Erectile dysfunction (Acute) GERD (gastroesophageal reflux disease) (Chronic) Medical History (Updated 11/19/24 @ 14:23 by Eduardo Jeff MD) Actinic keratoses Rectal bleeding Altered bowel function Back pain Dyspnea on exertion Vertebrobasilar insufficiency TIA (transient ischemic attack) 2019 Coronary artery disease Surgical History (Updated 08/18/23 @ 11:21 by Felicia Ramirez RN) History of colonoscopy with polypectomy (~06/11/23) 03/16/2005 History of coronary artery bypass graft 2015 Last saw cards 02/2023 At [place] in [facility] History of esophagogastroduodenoscopy (EGD) (~07/2023) biopsies taken Social History Smoking/Tobacco Use Status: Former Tobacco Use Quit Date: 11/08/12 Smoking risk assessment performed?: Yes Alcohol Intake: never Drug use: Never Substance use type: does not use Housing: house Current gender identity: male Do you feel safe at home: Yes Do you feel safe in your relationship?: Yes
[2024-11-19 12:37] LABS: Abs Immature Grans 0.02 10^3/uL (0.0-0.06); Absolute Basophil Count 0.09 10^3/uL (0.0-0.2); Absolute Eosinophil Count 0.13 10^3/uL (0.0-0.7); Absolute Lymphocyte Count 1.76 10^3/uL (1.2-3.4); Absolute Monocyte Count 0.77 10^3/uL (0.1-0.8); Absolute Neutrophil Count 4.83 10^3/uL (1.2-6.7); Basophils % 1.2 %; Eosinophils % 1.7 %; HCT 43.4 % (40.0-50.0); HGB 14.8 g/dL (13.5-17.5); Immature Grans % 0.3 %; Lymphocytes % 23.2 %; MCH 32.3 pg (27.0-33.0); MCHC 34.1 % (32.0-36.0); MCV 95 fL (80-95); MPV 9.5 fL (8.0-11.0); Monocytes % 10.1 %; Neutrophils % 63.5 %; Platelet Count 227 10^3/uL (130-400); RBC 4.58 10^6/uL (4.36-5.78); RDW 12.1 % (11.8-14.1); RDW-SD 42.3 fL
[2024-11-19 13:01] LABS: ALT 24 U/L (16-63); AST 19 U/L (15-37); Albumin 3.8 g/dL (3.4-5.0); Alkaline Phosphatase 80 U/L (46-116); Anion Gap 6.5 mmol/L (3-11); BUN 18 mg/dL (7-18); Bilirubin, Total 0.52 mg/dL (0.2-1.0); CO2 33.5 mmol/L (21.0-32.0); CREATININE 1.4 mg/dL (0.70-1.30); Calcium 8.7 mg/dL (8.5-10.1); Chloride 100 mmol/L (98-107); Estimated GFR 51.13 (mL/min/1.73m2); Glucose 103 mg/dL (74-106); Magnesium 2.2 mg/dL (1.8-2.4); NT-proBNP 129 pg/mL (<300); Sodium 140 mmol/L (136-145); Troponin I 7 ng/L (<or=76)
[2024-11-19 13:53] LABS: COVID-19 PCR Negative (Negative); Influenza A PCR Negative (Negative); Influenza B PCR Negative (Negative); RSV PCR Negative (Negative)
[2024-11-19 13:56] LABS: Source Nasopharynx
[2024-11-19 14:04] LABS: Troponin I 7 ng/L (<or=76)
[2024-11-19] MEDS: Amoxicillin 875/Clav. 125 TAB PO (14:49)
--- NOTE | 2024-11-25 11:00 | NUR.NOTE ---
Nursing Note: received call from patient that his lips feel tingly and numb this morning and inquiring if he should stop taking the Amoxicillin he's been on x [address] Jeff if patient does not have difficulty breathing or rash he can continue to take the Amoxicillin, but stop if those symptoms develop. Pt verbalized understanding and was told he can come in to be re-evaluated for these new symptoms.
== END 2024-11-19 14:56 | disposition home or self-care (01) ==
PROVIDERS: Emergency Provider Emergency Medicine; PCP Nurse Practitioner Family
DX: J01.00 Acute maxillary sinusitis, unspecified (principal); Z95.1 Presence of aortocoronary bypass graft; Z86.73 Personal history of transient ischemic attack (TIA), and cerebral infarction without residual deficits; Z79.82 Long term (current) use of aspirin; Z87.891 Personal history of nicotine dependence
CPT/HCPCS: 36415; 80053; 87637; 93005; 99284; 71046; 83735; 83880; 84484; 85025; 93010

== ENCOUNTER 2025-01-15 13:18 | Emergency (ER) | payer OTHER, SELFPAY ==
[2025-01-15 13:23] VITALS: BP 167/72; PULSE 89; RESP 20; TEMP 36.6; O2SAT 97
[2025-01-15 13:27] VITALS: BP 167/72; PULSE 89; RESP 20; TEMP 36.6; O2SAT 97
--- NOTE | 2025-01-15 14:35 | W.ED.GENAD ---
Discharge Plan Disposition Patient Disposition: Home Condition: Stable Discharge Details Clinical Impression: Influenza, Cough Primary Care Provider: Jhonny Schroeder ED Provider: Eduardo Jeff Home Meds and New Rx's Prescriptions: Continued aspirin 81 mg tablet,delayed release (DR/EC) 81 mg PO DAILY omeprazole 20 MG capsule,delayed release(DR/EC) 20 mg PO DAILY@0600 atorvastatin [Lipitor] 40 MG tablet 40 mg PO QPM tamsulosin 0.4 MG capsule 0.4 mg PO DAILY Qty: 0 0RF hydrochlorothiazide 12.5 mg capsule 12.5 mg PO DAILY Discharge Instructions Additional Instructions: You are positive for the flu. Your x-ray did not show a pneumonia. Follow-up with your primary care provider if you are not improving within a week. Make sure you take in plenty of fluids to stay hydrated. If you feel more ill or have new symptoms such as severe shortness of breath or persistent vomiting return to the emergency department for reevaluation HPI General Mode of arrival: ambulatory. Date/Time Provider Initiated Documentation: 01/15/25 13:35. Limitations to Documentation: no limitations. Information obtained by: patient. History of Present Illness 79 year old M presents to the emergency department with the chief complaint of cough, described as moderate, Patient started experiencing this day(s) (6) and it has been intermittent. No relieving factors improve symptom(s), No exacerbating factors reported . Patient notes fever/chills; denies chest pain, nausea/vomiting and shortness of breath. Patient did receive the following treatments prior to arrival, none Related Data Home Medications ?Medication ?Instructions ?Recorded ?Confirmed omeprazole 20 mg capsule,delayed 20 mg PO DAILY@0600 09/18/13 01/15/25 release atorvastatin 40 mg tablet (Lipitor) 40 mg PO QPM 06/28/16 01/15/25 tamsulosin 0.4 mg capsule 0.4 mg PO DAILY ##0 06/29/16 01/15/25 aspirin 81 mg tablet,delayed 81 mg PO DAILY 04/28/23 01/15/25 release hydrochlorothiazide 12.5 mg capsule 12.5 mg PO DAILY 11/19/24 01/15/25 Previous Rx's ?Medication ?Instructions ?Recorded tamsulosin 0.4 mg capsule 0.4 mg PO DAILY ##0 06/29/16 Allergies Allergy/AdvReac Type Severity Reaction Status Date / Time vardenafil Allergy Unknown unknown Verified 01/15/25 13:26 codeine Allergy rapid Unverified 01/15/25 13:26 heart rate/sweating General Stated Complaint: RespSymp TON: 3 Review of Systems All systems reviewed & are unremarkable except as noted in HPI and below Constitutional Constitutional: Denies chills, Denies fever(s) and Denies weakness ENT Ears, Nose, Mouth, and Throat: Denies change in voice Cardiovascular Cardiovascular: Denies chest pain and Denies dyspnea Respiratory Respiratory: Reports cough and Denies dyspnea Gastrointestinal Gastrointestinal: Denies abdominal pain, Denies nausea and Denies vomiting Integumentary/Breasts Skin/Breast: Denies rash Neurologic Neurologic: Denies weakness Exam Const General: no acute distress Orientation: alert [facility] Head: normal to inspection Ears: external ears normal General nose exam: external nose normal Mouth: moist mucous membranes Eyes General: appearance normal, both eyes and all related structures Neck Neck: normal visual inspection Resp Effort & Inspection: normal respiratory effort and able to speak in complete sentences Auscultation: clear to auscultation bilaterally and no wheezes Cardio Jugular venous pressure: no JVD Rate: regular rate Heart Sounds: no murmurs Skin General skin exam: no rashes or lesions noted Neuro General: patient alert and patient oriented x3 Extrem General: normal to inspection Psych Mental Status: mental status grossly normal Course Vital Signs Vital signs: Vital Signs Temperature 36.6 C 01/15/25 13:23 Pulse 89 01/15/25 13:23 Respiratory Rate 20 01/15/25 13:23 Blood Pressure 167/72 H 01/15/25 13:23 Pulse Oximetry 97 01/15/25 13:23 Temperature 36.6 C 01/15/25 13:27 Pulse 89 01/15/25 13:27 Respiratory Rate 20 01/15/25 13:27 Blood Pressure 167/72 H 01/15/25 13:27 Blood Pressure Position Sitting 01/15/25 13:27 Pulse Oximetry 97 01/15/25 13:27 Medical Decision Making 79-year-old male with a history of hyperlipidemia, hypertension who comes in with 6 days of cough and states he had a fever the first few days. He has not had a fever in a few days. He denies any chest pain or difficulty breathing. He is well-appearing speaking full senses on exam with intermittent dry cough. He has clear lung sounds, no JVD, no leg swelling or calf tenderness I suspect respiratory infection, will check a Fluvid, CBC, CMP and a chest x-ray. Labs unremarkable other than being positive for the flu. He is had symptoms for over 24 hours do not feel Tamiflu would be indicated. X-ray unremarkable. He is stable and still appears well. Discussed results with him and he is stable for discharge and will follow-up with his PCP, return precautions given Differential Diagnosis Differential Diagnosis: Pneumonia, COVID, flu Lab Data Lab results reviewed: Yes I reviewed the patient's lab results. Quality:SDOH Health Related Social Needs: No Data to Display PFSH All Active Problems (Updated 01/15/25 @ 15:53 by Eduardo Jeff MD) Cough (Acute) Influenza (Acute) Tubular adenoma (Acute ~06/11/23) 03/16/2005 Peptic anastomotic ulcer (Acute) Peptic ulcer disease (Chronic) Erectile dysfunction (Acute) GERD (gastroesophageal reflux disease) (Chronic) Medical History (Updated 01/15/25 @ 15:53 by Eduardo Jeff MD) Actinic keratoses Rectal bleeding Altered bowel function Back pain Dyspnea on exertion Vertebrobasilar insufficiency TIA (transient ischemic attack) 2019 Coronary artery disease Surgical History (Updated 08/18/23 @ 11:21 by Felicia Ramirez RN) History of colonoscopy with polypectomy (~06/11/23) 03/16/2005 History of coronary artery bypass graft 2014 Last saw cards 02/2023 At [place] in [facility] History of esophagogastroduodenoscopy (EGD) (~07/2023) biopsies taken Social History Smoking/Tobacco Use Status: Former Tobacco Use Quit Date: 11/08/12 Smoking risk assessment performed?: Yes Alcohol Intake: never Drug use: Never Substance use type: does not use Housing: house Current gender identity: male Do you feel safe at home: Yes Do you feel safe in your relationship?: Yes
[2025-01-15 14:58] VITALS: BP 162/74; PULSE 72; O2SAT 98
[2025-01-15 15:02] LABS: Abs Immature Grans 0.01 10^3/uL (0.0-0.06); Absolute Basophil Count 0.02 10^3/uL (0.0-0.2); Absolute Eosinophil Count 0.06 10^3/uL (0.0-0.7); Absolute Lymphocyte Count 1.44 10^3/uL (1.2-3.4); Absolute Monocyte Count 0.59 10^3/uL (0.1-0.8); Absolute Neutrophil Count 2.58 10^3/uL (1.2-6.7); Basophils % 0.4 %; Eosinophils % 1.3 %; HCT 41.4 % (40.0-50.0); HGB 14.6 g/dL (13.5-17.5); Immature Grans % 0.2 %; Lymphocytes % 30.6 %; MCH 32.3 pg (27.0-33.0); MCHC 35.3 % (32.0-36.0); MCV 92 fL (80-95); Monocytes % 12.6 %; Neutrophils % 54.9 %; RBC 4.52 10^6/uL (4.36-5.78); RDW-SD 40.3 fL
[2025-01-15 15:03] LABS: COVID-19 PCR Negative (Negative); Influenza A PCR Positive (Negative); Influenza B PCR Negative (Negative); RSV PCR Negative (Negative)
[2025-01-15 15:06] LABS: Source Nasopharynx
--- NOTE | 2025-01-15 15:07 | DI.RAD_ITS ---
Exam(s) XR CHEST 2V PA LATERAL EXAM: XR CHEST 2V PA LATERAL CLINICAL HISTORY: cough, ?pneumonia. TECHNIQUE: 2D digital imaging was performed. COMPARISON: CR CHEST 2 VIEWS PA,LAT from 06/28/2016 CR XR CHEST 2V PA LATERAL from 02/17/2023 CR XR CHEST 2V PA LATERAL from 11/19/2024 FINDINGS: 2 views: Again noted are sternotomy wires and evidence of previous CABG as well as left anterior chest wall ortega bcutaneous cardiac loop detector. Heart size is normal. The mediastinum is not widened. No new infiltrates nor pleural effusions. No CHF. Small nodular density in the lower right lung fie ld is unchanged. This measures 5 x 2 mm. May possibly represent breast nipple possibly small lung n odule. However, it is also unchanged from chest x-ray of February 2023 and chest x-ray of 2015. It is probably a small calcified granuloma. IMPRESSION: No acute pulmonary findings.Cardiac findings as above. Small probable right lung granuloma unchanged from 2016. DATA REPOSITORY: RADIATION DOSE DELIVERED:
[2025-01-15 15:21] LABS: Platelet Count 142 10^3/uL (130-400)
[2025-01-15 15:32] LABS: ALT 29 U/L (16-63); AST 31 U/L (15-37); Albumin 3.4 g/dL (3.4-5.0); Alkaline Phosphatase 91 U/L (46-116); Anion Gap 6.9 mmol/L (3-11); BUN 12 mg/dL (7-18); Bilirubin, Total 0.5 mg/dL (0.2-1.0); CO2 31.1 mmol/L (21.0-32.0); CREATININE 1.2 mg/dL (0.70-1.30); Calcium 8.4 mg/dL (8.5-10.1); Chloride 99 mmol/L (98-107); Estimated GFR 61.52 (mL/min/1.73m2); Glucose 131 mg/dL (74-106); Potassium 3.7 mmol/L (3.5-5.1); Sodium 137 mmol/L (136-145)
[2025-01-15 16:08] VITALS: BP 158/62; PULSE 68; RESP 16; TEMP 37.1; O2SAT 98
== END 2025-01-15 16:10 | disposition home or self-care (01) ==
PROVIDERS: Physician Assistant; Emergency Provider Emergency Medicine; PCP Nurse Practitioner Family
DX: J10.1 Influenza due to other identified influenza virus with other respiratory manifestations (principal); R05.9 Cough, unspecified; I25.10 Atherosclerotic heart disease of native coronary artery without angina pectoris; Z79.82 Long term (current) use of aspirin; Z95.1 Presence of aortocoronary bypass graft; Z86.73 Personal history of transient ischemic attack (TIA), and cerebral infarction without residual deficits; Z87.891 Personal history of nicotine dependence
CPT/HCPCS: 36415; 80053; 87637; 99284; 71046; 85025